=== PATIENT | male | born 1960 | race African-American/Black ===

== ENCOUNTER 2017-03-17 17:50 | Emergency (ER) | payer OTHER ==
[2017-03-17 17:57] VITALS: TEMP 97.5; BMI 32.5
--- NOTE | 2017-03-17 17:57 | PDOC ---
Rapid Medical Evaluation Time Seen by Provider: 03/17/17 17:52 Medical Evaluation: Allergies Allergy/AdvReac Type Severity Reaction Status Date / Time Penicillins Allergy Verified 03/17/17 17:52 I have performed a brief in-person evaluation of this patient. The patient presents with a chief complaint of: out of BP meds for 4 weeks ( stroke in September 2016). No symptoms Pertinent physical exam findings: BP 206/111 I have ordered the following: nifedipine and hctz The patient will proceed to the ED for further evaluation. PCP is Dr. Hassan
[2017-03-17] MEDS ORDERED: HYDROCHLOROTHIAZIDE 12.5 MG CAPSULE (FP) PO SCH (18:00)
[2017-03-17] MEDS ORDERED: NIFEdipine E.R. 90 MG TABLET (FP) PO SCH (18:00)
--- NOTE | 2017-03-17 18:13 | PDOC ---
Attending Attestation - Resident Resident Name: Holt,Mary - HPI HPI: 03/17/17 20:18 Pt presents to the ED after sent in from PMD's office for hypertension. Patient has a history of hypertension and has been off his antihypertensive meds for 4 weeks due to insurance issues. Patient is completely symptom free, and specifically denies chest pain or shortness of breath. History of CVA one year ago. - Physicial Exam PE: 03/17/17 20:23 Agree with resident exam. Patient is alert and oriented and neurologically intact. - Medical Decision Making 03/17/17 20:24 pt presents to the Ed complaining of chronic hypertension. Given his antihypertensive meds in the Ed. Continues to be symptom free. Patient has prescriptions for his medications. Remains hypertensive and asymptomatic. I have instructed the patient to return to the ED immediately for chest pain, shortness of breath, severe headache, other new symptoms. Will follow up with PMD within two days.
--- NOTE | 2017-03-17 18:27 | PDOC ---
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 He explains that his insurance switched at the beginning of the year and he needed to change doctors. He was unable to refill his normal blood pressure medications last month (HCTZ 12.5mg and nifedipine ER 90 mg both once daily) and has not taken either of these medications in the past four weeks. He has been feeling well per his normal baseline and denies headache, vision change, speech change, chest pain, SOB, abdominal pain, back pain, changes in urination, incontinence or retention of urine or bowel, numbness, tingling, focal weakness, difficulty walking or balancing, or any other symptoms. He was at his PCP's office for a new-patient visit and to have his HTN medications refilled (the clinic did send prescriptions for his antihypertensive medications to her pharmacy). <Martina Holt - Last Filed: 03/17/17 18:28> <Rose Allison - Last Filed: 03/17/17 20:00> - General Chief Complaint: Blood Pressure Problem Stated Complaint: PCP SENT Time Seen by Provider: 03/17/17 17:52 Past History - Past Medical History CVA: Yes (TIA) COPD: No HTN: Yes - Surgical History Abdominal Surgery: Yes (ING.HERNIA) - Suicide/Smoking/Psychosocial Hx Smoking History: Never smoked Have you smoked in the past 12 months: No Information on smoking cessation initiated: No Hx Alcohol Use: No Drug/Substance Use Hx: No Substance Use Type: None <Martina Holt - Last Filed: 03/17/17 18:28> <Rose Allison - Last Filed: 03/17/17 20:00> - Past Medical History Allergies/Adverse Reactions: Allergies Allergy/AdvReac Type Severity Reaction Status Date / Time Penicillins Allergy Verified 03/17/17 17:52 Home Medications: Ambulatory Orders Unobtainable [Unobtainable] 03/17/17 Review of Systems - Review of Systems Able to Perform ROS?: Yes Constitutional: No: Chills, Fever, Unexplained wgt Loss HEENTM: No: Nose Congestion, Throat Pain Respiratory: No: Cough, Shortness of Breath Cardiac (ROS): No: Chest Pain, Palpitations ABD/GI: No: Constipated, Diarrhea, Nausea, Vomiting : No: Burning, Dysuria Musculoskeletal: No: Back Pain, Neck Pain Integumentary: No: Bruising, Rash Neurological: No: Headache, Numbness, Tingling, Weakness, Dizziness Endocrine: No: Unexplained Weight Gain, Unexplained Weight Loss <Martina Holt - Last Filed: 03/17/17 18:28> *Physical Exam - Vital Signs Last Vital Signs Temp Pulse Resp BP Pulse Ox 97.5 F L 60 18 206/111 100 03/17/17 17:53 03/17/17 17:53 03/17/17 17:53 03/17/17 17:53 03/17/17 17:53 - Physical Exam General Appearance: Yes: Nourished, Appropriately Dressed, Other (nontoxic and well-appearing adult male in no distress, slight stutter, answering questions appropriately). No: Apparent Distress HEENT: positive: EOMI, SALONI, Normal ENT Inspection, Normal Voice, Hearing Grossly Normal. negative: Scleral Icterus (R), Scleral Icterus (L), Nasal Congestion Neck: positive: Trachea midline, Supple. negative: Tender, Rigid, Decreased range of motion, Rigidity Respiratory/Chest: positive: Lungs Clear, Normal Breath Sounds. negative: Respiratory Distress, Crackles, Rhonchi, Stridor, Wheezing Cardiovascular: positive: Regular Rhythm, Regular Rate, S1, S2. negative: Edema , JVD, Murmur Gastrointestinal/Abdominal: positive: Normal Bowel Sounds, Soft. negative: Tender, Organomegaly, Pulsatile Mass, Guarding Musculoskeletal: positive: Normal Inspection. negative: Decreased Range of Motion, Vertebral Tenderness Extremity: positive: Normal Capillary Refill, Normal Inspection, Normal Range of Motion. negative: Tender, Cyanosis Integumentary: positive: Normal Color, Dry, Warm. negative: Erythema, Rash, Bruising Neurologic: positive: elevating grader operator II-XII NML intact, Fully Oriented, Alert, Normal Mood/ Affect, Normal Response, Motor Strength 5/5, Finger to Nose (normal). negative : EOM Palsy, Facial Droop, Numbness, Sensory Deficit, Confused, Disoriented <Martina Holt - Last Filed: 03/17/17 18:28> - Vital Signs Last Vital Signs Temp Pulse Resp BP Pulse Ox 97.5 F L 58 L 20 198/119 96 03/17/17 17:53 03/17/17 18:25 03/17/17 18:25 03/17/17 18:25 03/17/17 18:25 <Estefany,Rose - Last Filed: 03/17/17 20:00> Medical Decision Making - Medical Decision Making Astymptomatic 56 YOM with h/o HTN and "mini-stroke" p/w HTN in his PCP's office after no meds x4 weeks. On exam he is hypertensive to 206/111 initially but otherwise VS wnl, no distress, appropriate, states chronic mild stutter. Ordered are doses of his two normal antihypertensive medications (nifedipine and HCTZ). Will re-check blood pressure and (if reduces to <180/<100) he will be appropriate for discharge home. He states his PCP clinic already sent over Rx for his antihypertensive medications to his pharmacy. <Martina Holt - Last Filed: 03/17/17 18:28> *DC/Admit/Observation/Transfer - Discharge Dispostion Admit: No <Martina Holt - Last Filed: 03/17/17 18:28> <Rose Allison - Last Filed: 03/17/17 20:00> Diagnosis at time of Disposition: Hypertension Qualifiers: Hypertension type: unspecified Qualified Code(s): I10 - Essential (primary) hypertension - Discharge Dispostion Disposition: HOME Condition at time of disposition: Stable - Patient Instructions Printed Discharge Instructions: DI for High Blood Pressure Additional Instructions: You were seen in the ER for high blood pressure after not having your normal medications for the past 4 weeks. We gave you your normal doses of your two blood pressure medications (nifedipine and HCTZ). We then re-checked your blood pressure here in the department and it had improved. Please order picker/assembler your prescriptions for your blood pressure medications, and take them starting around 6 pm tomorrow. Please follow up with your primary doctor's clinic as needed, or you can always return to the ER for any new or worsening symptoms like chest pain, severe headache, new vision changes, difficulty balancing, or any other neurological symptoms.
[2017-03-17 20:27] VITALS: BP 201/111; PULSE 55
== END 2017-03-17 20:27 | disposition home or self-care (01) ==
LOC: JER 17:50
DX: I10 Essential (primary) hypertension (principal); Z86.73 Personal history of transient ischemic attack (TIA), and cerebral infarction without residual deficits; Z91.14 Patient's other noncompliance with medication regimen
CPT/HCPCS: 99282-25